=== PATIENT | male | born 1990 | race Caucasian/White ===

== ENCOUNTER 2020-12-15 17:11 | Inpatient (IN) | payer OTHER ==
[~2020-12-15] VITALS: Ht 170.2 cm; Wt 50.9 kg
[2020-12-15 17:37] VITALS: BP 122/79
[2020-12-15] MEDS: D5%-LACTATED RINGERS 1,000 ML IV SCH (18:24)
[2020-12-15] MEDS ORDERED: ACETAMINOPHEN 325 MG TABLET PO PRN (18:30)
[2020-12-15] MEDS ORDERED: ONDANSETRON 2MG/ML, 2ML IVPush PRN (18:30)
[2020-12-15] MEDS ORDERED: ALUMINUM/MAG/SIMETHICONE 30 ML UDC PO PRN (18:30)
[2020-12-15] MEDS ORDERED: MELATONIN 5 MG TABLET PO PRN (18:30)
[2020-12-15] MEDS ORDERED: BISACODYL 10 MG SUPP PR PRN (18:30)
[2020-12-15] MEDS ORDERED: ONDANSETRON ODT 4 MG PO PRN (18:30)
[2020-12-15] MEDS ORDERED: POLYETHYLENE GLYCOL 17 GM PACKET PO PRN (18:30)
[2020-12-15] MEDS ORDERED: hydrALAzine 20 MG/ML, 1ML IVPush PRN (18:30)
[2020-12-15] MEDS: PANTOPRAZOLE 40 MG IV IVPush SCH (18:35)
[2020-12-15 19:08] LABS: MICROSCOPIC AUTO
[2020-12-15 19:09] LABS: MEAN CORPUSCULAR HEMOGLOBIN 30.6 pg (27.5-34.5); MEAN CORPUSCULAR HGB CONC 33.5 g/dL (33.2-36.2); MEAN PLATELET VOLUME 7.3 fL (7.4-10.4); PLATELET COUNT 267 x10^3/uL (130-400); RED BLOOD COUNT 4.32 x10^6/uL (4.38-5.82); RED CELL DISTRIBUTION WIDTH 12.8 % (9.4-14.8)
[2020-12-15 19:10] LABS: HCT (SEDRATE) 39.5 % (39.2-51.8)
[2020-12-15 19:18] LABS: ANION GAP 5 mmol/L (5-15); CALCIUM 8.4 mg/dL (8.5-10.1); CHLORIDE 113 mmol/L (98-107)
[2020-12-15 19:42] LABS: <RBC MORPHOLOGY> NORMAL; BAND#(MANUAL) 1.02 x10^3/uL; BANDS%(MANUAL) 4 % (0-7); LYMPH#(MANUAL) 0.26 x10^3/uL (1-3.4); LYMPHS% (MANUAL) 1 % (22-44); MONOS#(MANUAL) 0.51 x10^3/uL (0.3-2.7); MONOS% (MANUAL) 2 % (2-9); SEG#(MANUAL) 23.81 x10^3/uL (1.8-6.8); SEGS% (MANUAL) 93 % (42-75)
[2020-12-15 19:43] LABS: <PLATELET ESTIMATE> ADEQUATE; <PLT MORPHOLOGY> NORMAL PLT MORPH
[2020-12-15 19:49] VITALS: BP 128/78
[2020-12-15] MEDS ORDERED: OMNIPAQUE 350 MG/ML, 100ML BOTTLE ONE (20:14)
[2020-12-15] MEDS: SUCRALFATE 1 GM/10 ML UDC PO SCH (20:39)
[2020-12-15] MEDS: PIPERACILLIN/TAZO 3.375 GM in DEXTROSE 5% 50 ML IV SCH (20:41)
[2020-12-16 02:30] VITALS: BP 127/78
[2020-12-16] MEDS: PIPERACILLIN/TAZO 3.375 GM in DEXTROSE 5% 50 ML IV SCH ×5 (02:33→21:13)
[2020-12-16] MEDS: D5%-LACTATED RINGERS 1,000 ML IV SCH ×2 (05:17→14:45)
[2020-12-16 05:44] LABS: MEAN CORPUSCULAR HEMOGLOBIN 31.4 pg (27.5-34.5); MEAN CORPUSCULAR HGB CONC 34.1 g/dL (33.2-36.2); MEAN PLATELET VOLUME 7.3 fL (7.4-10.4); PLATELET COUNT 256 x10^3/uL (130-400); RED BLOOD COUNT 4.03 x10^6/uL (4.38-5.82); RED CELL DISTRIBUTION WIDTH 12.8 % (9.4-14.8)
[2020-12-16 05:48] LABS: ALBUMIN 2.6 g/dL (3.4-5.0); ANION GAP 2 mmol/L (5-15); CALCIUM 8.4 mg/dL (8.5-10.1); CHLORIDE 114 mmol/L (98-107)
[2020-12-16 05:52] LABS: ALANINE AMINOTRANSFERASE 31 U/L (12-78); ALKALINE PHOSPHATASE 57 U/L (45-117); BILIRUBIN,TOTAL 0.4 mg/dL (0.2-1.0); CREATININE 0.73 mg/dL (0.7-1.3); TOTAL PROTEIN 5.9 g/dL (6.4-8.2)
[2020-12-16] MEDS: PANTOPRAZOLE 40 MG IV IVPush SCH ×2 (05:52→18:30)
[2020-12-16] MEDS: SUCRALFATE 1 GM/10 ML UDC PO SCH ×4 (05:52→21:13)
[2020-12-16] MEDS: HYDROmorphone 2 MG/ML, 1ML IVPush PRN ×4 (06:02→21:50)
[2020-12-16 06:09] LABS: BAND#(MANUAL) 0.42 x10^3/uL; BANDS%(MANUAL) 2 % (0-7); LYMPHS% (MANUAL) 10 % (22-44); MONOS#(MANUAL) 0.21 x10^3/uL (0.3-2.7); MONOS% (MANUAL) 1 % (2-9); SEG#(MANUAL) 18.27 x10^3/uL (1.8-6.8); SEGS% (MANUAL) 87 % (42-75)
[2020-12-16 06:10] LABS: <PLATELET ESTIMATE> ADEQUATE; <PLT MORPHOLOGY> NORMAL PLT MORPH; <RBC MORPHOLOGY> NORMAL
[2020-12-16 07:13] VITALS: BP 126/59
[2020-12-16] MEDS: SENNA/DOCUSATE TABLET PO SCH (08:57)
[2020-12-16] MEDS ORDERED: ACETAMINOPHEN 325 MG TABLET PO PRN (12:30)
[2020-12-16] MEDS ORDERED: OXYcodone 5 MG/5 ML ORAL.SOL UDC PO PRN (12:30)
[2020-12-16] MEDS ORDERED: EPHEDRINE 50 MG/ML, 1ML IVPush PRN (12:30)
[2020-12-16] MEDS ORDERED: PROMETHAZINE 25 MG/ML, 1ML IVPush PRN (12:30)
[2020-12-16] MEDS ORDERED: ONDANSETRON 2MG/ML, 2ML IVPush PRN (12:30)
[2020-12-16] MEDS ORDERED: HYDROmorphone 1 MG/ML, 1ML INJ IVPush PRN (12:30)
[2020-12-16] MEDS ORDERED: hydrALAzine 20 MG/ML, 1ML IV PRN (12:30)
[2020-12-16] MEDS ORDERED: LABETALOL 5MG/ML, 20ML IV PRN (12:30)
[2020-12-16 13:35] VITALS: BP 118/83
[2020-12-16] MEDS ORDERED: EPINEPHRINE 1 MG/ML, 1ML ONE (14:51)
[2020-12-16] MEDS ORDERED: LIDOCAINE 1%, 20ML ONE (14:51)
[2020-12-16] MEDS ORDERED: MIDAZOLAM 1 MG/ML, 2ML ONE ×2 (16:28→17:50)
[2020-12-16] MEDS ORDERED: MIDAZOLAM 1 MG/ML, 2ML IV ONE (17:00)
[2020-12-16] MEDS ORDERED: FENTANYL PF 100 MCG/2ML ONE ×2 (17:50→18:31)
[2020-12-16] MEDS ORDERED: KETOROLAC 30 MG/1 ML ONE (18:01)
[2020-12-16] MEDS ORDERED: HYDROmorphone 1 MG/ML, 1ML INJ ONE ×2 (18:02→18:49)
[2020-12-16] MEDS ORDERED: SUCCINYLCHOLINE 20 MG/ML, 10ML ONE (18:12)
[2020-12-16] MEDS ORDERED: DEXAMETHASONE 4 MG/ML, 1ML ONE (18:12)
[2020-12-16] MEDS ORDERED: ONDANSETRON 2MG/ML, 2ML ONE (18:12)
[2020-12-16] MEDS ORDERED: PROPOFOL 10 MG/ML, 20ML ONE (18:12)
[2020-12-16] MEDS ORDERED: LIDOCAINE 1%-EPI 1:100K, 20ML IM ONE (18:15)
[2020-12-16] MEDS: FENTANYL PF 100 MCG/2ML IV PRN ×2 (18:30→18:38)
[2020-12-16] MEDS ORDERED: OXYcodone 5 MG/5 ML ORAL.SOL UDC ONE (18:32)
[2020-12-16 20:04] VITALS: BP 123/70
[2020-12-16] MEDS: NICOTINE 14MG/24 HR PATCH.TD24 TD SCH (21:13)
[2020-12-17 00:10] VITALS: BP 109/66
[2020-12-17] MEDS: D5%-LACTATED RINGERS 1,000 ML IV SCH ×3 (01:35→23:30)
[2020-12-17] MEDS: HYDROmorphone 2 MG/ML, 1ML IVPush PRN ×4 (01:35→15:50)
[2020-12-17] MEDS: PIPERACILLIN/TAZO 3.375 GM in DEXTROSE 5% 50 ML IV SCH ×4 (03:22→20:38)
[2020-12-17 04:05] VITALS: BP 120/80
[2020-12-17 06:01] LABS: BASOPHILS % (AUTO) 0 % (0-1); EOSINOPHILS % (AUTO) 0 % (1-7); LYMPHOCYTES % (AUTO) 6 % (22-44); MEAN CORPUSCULAR HEMOGLOBIN 31.3 pg (27.5-34.5); MEAN PLATELET VOLUME 7.5 fL (7.4-10.4); MONOCYTES % (AUTO) 9 % (2-9); NEUTROPHILS % (AUTO) 85 % (42-75); PLATELET COUNT 256 x10^3/uL (130-400); RED BLOOD COUNT 4.38 x10^6/uL (4.38-5.82); RED CELL DISTRIBUTION WIDTH 12.4 % (9.4-14.8)
[2020-12-17 06:17] LABS: CHLORIDE 108 mmol/L (98-107)
[2020-12-17 06:21] LABS: ALANINE AMINOTRANSFERASE 35 U/L (12-78); ALKALINE PHOSPHATASE 62 U/L (45-117); ANION GAP 2 mmol/L (5-15); BILIRUBIN,TOTAL 0.6 mg/dL (0.2-1.0); CALCIUM 8.5 mg/dL (8.5-10.1); CREATININE 0.63 mg/dL (0.7-1.3); TOTAL PROTEIN 6.6 g/dL (6.4-8.2)
[2020-12-17 06:37] VITALS: BP 114/69
[2020-12-17] MEDS: PANTOPRAZOLE 40 MG IV IVPush SCH ×2 (07:27→18:26)
[2020-12-17] MEDS: SUCRALFATE 1 GM/10 ML UDC PO SCH ×4 (07:28→20:55)
[2020-12-17] MEDS: SENNA/DOCUSATE TABLET PO SCH (09:42)
[2020-12-17 13:06] VITALS: BP 123/76
[2020-12-17 18:56] VITALS: BP 119/75
[2020-12-17] MEDS: NICOTINE 14MG/24 HR PATCH.TD24 TD SCH (20:55)
[2020-12-18 01:19] VITALS: BP 151/78
[2020-12-18] MEDS: PIPERACILLIN/TAZO 3.375 GM in DEXTROSE 5% 50 ML IV SCH ×2 (02:49→08:49)
[2020-12-18 05:42] LABS: BASOPHILS % (AUTO) 1 % (0-1); EOSINOPHILS % (AUTO) 2 % (1-7); LYMPHOCYTES % (AUTO) 34 % (22-44); MEAN CORPUSCULAR HEMOGLOBIN 30.9 pg (27.5-34.5); MEAN CORPUSCULAR HGB CONC 33.6 g/dL (33.2-36.2); MEAN PLATELET VOLUME 7.3 fL (7.4-10.4); MONOCYTES % (AUTO) 12 % (2-9); NEUTROPHILS % (AUTO) 51 % (42-75); PLATELET COUNT 249 x10^3/uL (130-400); RED BLOOD COUNT 4.25 x10^6/uL (4.38-5.82); RED CELL DISTRIBUTION WIDTH 12.6 % (9.4-14.8)
[2020-12-18] MEDS: SUCRALFATE 1 GM/10 ML UDC PO SCH (05:59)
[2020-12-18] MEDS: PANTOPRAZOLE 40 MG IV IVPush SCH (05:59)
[2020-12-18 06:04] LABS: CHLORIDE 108 mmol/L (98-107)
[2020-12-18 06:12] LABS: ANION GAP 2 mmol/L (5-15); CALCIUM 8.6 mg/dL (8.5-10.1)
[2020-12-18 07:00] VITALS: BP 145/84
[2020-12-18] MEDS ORDERED: HYDR-3241 PO (08:42)
[2020-12-18] MEDS ORDERED: AMOX1TAB64 PO (08:46)
[2020-12-18] MEDS ORDERED: PANT40TA3 PO (08:48)
[2020-12-18] MEDS: SENNA/DOCUSATE TABLET PO SCH (08:48)
[2020-12-18] MEDS ORDERED: SUCR1TAB33 PO (08:48)
== END 2020-12-18 11:15 | disposition home or self-care (01) | DRG 138 ==
LOC: 4NE 17:11 → DCLOUNGE 12-18 11:06
PROVIDERS: ADMIT Internal Medicine; ATTEND Hospitalist
PROC: 0J910ZZ Drainage of Face Subcutaneous Tissue and Fascia, Open Approach (ICD-10-PCS; principal; 2020-12-16 15:00)
DX: K12.2 Cellulitis and abscess of mouth (principal); F12.90 Cannabis use, unspecified, uncomplicated; Z20.822 Contact with and (suspected) exposure to COVID-19; K29.70 Gastritis, unspecified, without bleeding; Z80.8 Family history of malignant neoplasm of other organs or systems; Z87.891 Personal history of nicotine dependence; Z79.899 Other long term (current) drug therapy
CPT/HCPCS: 36415; 70100; J3490; J7121; 70491; 71046; 80048; 80053; 81001; 83690; 83735; 84100; 85025; 85651; 87040; 87070; 87075; 87205; 87635; G0378; J0171; J1100; J1170; J1885; J2250; J2405; J2543; J2704; J3010; Q9967; C9113; J0330